=== PATIENT | female | born 1960 | race Caucasian/White ===

== ENCOUNTER 2017-10-19 13:57 | Emergency (ER) | payer OTHER ==
[2017-10-19] MEDS ORDERED: HYDROCODONE/APAP 5/325 MG TAB ONE (14:41)
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
--- NOTE | 2017-10-19 15:33 | RAD REPORT ---
EXAM DESCRIPTION: CT - CTFB CLINICAL HISTORY: FACIAL PAIN COMPARISON: No comparisons TECHNIQUE: Axial 2 mm thick images of the face were obtained with sagittal and coronal reconstructio n images. All CT scans are performed using dose optimization technique as appropriate and may include automated exposure control or mA/KV adjustment according to patient size. FINDINGS: Nasal bone fracture is present, on the right. Soft tissue swelling is evident.Old left foss miguel ángel papyracea fracture also seen.The mandible is intact. The globes and orbital contents are grossly unremarkable.The paranasal sinuses and mastoids are clear . IMPRESSION: Mild nasal bone fracture seen.
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
== END 2017-10-19 16:05 | disposition home or self-care (01) ==
LOC: ER 13:57
DX: S02.2XXA Fracture of nasal bones, initial encounter for closed fracture (principal); V47.0XXA Car driver injured in collision with fixed or stationary object in nontraffic accident, initial encounter; Y93.89 Activity, other specified; Y92.410 Unspecified street and highway as the place of occurrence of the external cause; I10 Essential (primary) hypertension; F17.210 Nicotine dependence, cigarettes, uncomplicated
CPT/HCPCS: 70450; 70486; 72125; 76377; 99284